=== PATIENT | female | born 1985 | race Caucasian/White ===

== ENCOUNTER 2017-04-13 11:12 | Emergency (ER) | payer BC ==
[2016-07-30 17:50] VITALS: BP 114/65
[~2017-04-13] VITALS: Ht 157.5 cm; Wt 77.1 kg
[~2017-04-13 11:12] MED LIST: ACET-704 PO; HYDR-971 PO; MAGN296S9 PO; METR500T PO
--- NOTE | 2017-04-13 11:37 | PHYS DOC ---
Past History Past Medical History: Anxiety, Migraines Past Surgical History: Appendectomy, , Tubal ligation Alcohol Use: None Drug Use: None Adult General Chief Complaint Chief Complaint: wound dehiscence [facility] HPI This is a pleasant 31-year-old female who is approximately 2 weeks postoperative oophorectomy bilaterally to a laparoscopic procedure to the abdominal wall who presents with a wound has dehisced. Her [employer] last week for a wound on her lower abdomen that she feared was infected. The wound was noninfected she was placed on bed rest but she cannot comply. 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 10 minutes prior to arrival she sneezed and the wound dehisced. She denies any pain , fevers, drainage from the wound at this time. That the wound is opened up and will not heal properly. She denies any other abdominal pain, nausea, vomiting, fevers, chills or any other symptoms. Review of Systems Review of Systems Constitutional: Denies fever or chills [] Eyes: Denies change in visual acuity, redness, or eye pain [] HENT: Denies nasal congestion or sore throat [] Respiratory: Denies cough or shortness of breath [] Cardiovascular: No additional information not addressed in HPI [] GI: Denies abdominal pain, nausea, vomiting, bloody stools or diarrhea [] : Denies dysuria or hematuria [] Musculoskeletal: Denies back pain or joint pain [] Integument: Denies rash or skin lesions [] Neurologic: Denies headache, focal weakness or sensory changes [] Endocrine: Denies polyuria or polydipsia [] Allergies Allergies Allergies Coded Allergies Type Severity Reaction Last Updated Verified No Known Drug Allergies 12/28/14 No Physical Exam Physical Exam Vital signs normal except noted tachycardia. Constitutional: Well developed, well nourished, no acute distress, non-toxic appearance. [] Abdomen: Bowel sounds normal, soft, no tenderness, no masses, no pulsatile masses. [] Skin: Warm, dry, no erythema, no rash. There is a small 1 cm open dehisced wound on the lower portion of the abdominal wall 3 inches above the pubic symphysis. There is no active bleeding drainage or signs of infection. The wound edges devastate granulation tissue the depth of the wound is only about 2- 3 mm area there is no signs of erythema Psych: Patient is anxious but appropriate. She is noted to be tachycardic but typical for her given her level of stress and oriented. EKG EKG [] Radiology/Procedures Radiology/Procedures [] Course & Med Decision Making Course & Med Decision Making Pertinent Labs and Imaging studies reviewed. (See chart for details) [] Dragon Disclaimer Dragon Disclaimer This chart was dictated in whole or in part using Voice Recognition software in a busy, high-work load, and often noisy Emergency Department environment. It may contain unintended and wholly unrecognized errors or omissions. Departure Departure: Impression: Primary Impression: Visit for wound check Disposition: HOME, SELF-CARE Condition: STABLE Referrals: AGUILAR HENRIQUEZ MD (PCP) Patient Instructions: Stitches, [place] or Skin Adhesive Strips, [id number], Wound Care, [id number] Additional Instructions: Please follow-up with her primary [employer] tomorrow or the next day to revisit the wound to ensure that is healing quickly. Please return for any signs of infection or if you've any questions or concerns. Laceration Repair Lac Repair Indication: Wound dehiscence consent was verbal Procedure: The patient was placed in the appropriate position and no anesthetic was used]. The area was then cleaned. The laceration was most using Steri- Strips and Mastisol].] The wound area was then dressed with clean gauze. Total repaired wound length: Less than 1 cm. Other Items: [OTHER ITEMS] The patient tolerated the procedure is tolerated procedure well Complications: Complications none JACQUIE BILL MD Apr 13, 2017 11:37
== END 2017-04-13 11:56 | disposition home or self-care (01) ==
LOC: ER 11:12
DX: Z48.89 Encounter for other specified surgical aftercare (principal); F41.9 Anxiety disorder, unspecified; G43.909 Migraine, unspecified, not intractable, without status migrainosus; Z90.722 Acquired absence of ovaries, bilateral; Z90.49 Acquired absence of other specified parts of digestive tract; Z98.51 Tubal ligation status
CPT/HCPCS: 99283

== ENCOUNTER 2017-06-23 20:11 | Emergency (ER) | payer BC ==
[~2017-06-23] VITALS: Ht 157.5 cm; Wt 63.5 kg
[2017-06-23 20:11] VITALS: BP 130/89
[2017-06-23] MEDS ORDERED: NAPR500T PO (20:49)
--- NOTE | 2017-06-23 20:49 | PHYS DOC ---
Past History Past Medical History: Anxiety, Migraines Past Surgical History: Appendectomy, , Tubal ligation Alcohol Use: None Drug Use: None Adult General Chief Complaint Chief Complaint: LOWEREXTREMITY INJURY HPI HPI Patient is a 31 year old female who presents with pain to her right ankle. She was running and twisted it at 1845 PM. Pain to the outer portion. Is able to ambulate. No other complaints or injuries. Review of Systems Review of Systems Musculoskeletal: only ankle pain Integument: Denies rash or skin lesions; no bruising or laceration. Allergies Allergies Allergies Coded Allergies Type Severity Reaction Last Updated Verified No Known Drug Allergies 12/28/14 No Physical Exam Physical Exam Constitutional: Well developed, well nourished, no acute distress, non-toxic appearance. Extremities: Right lower leg: no proximal fibula tenderness; no knee pain, swelling or tenderness. Right lateral malleoli tender but no swelling; no pain on palpation of 5th MT. Neurologic: Alert and oriented X 3, normal motor function, normal sensory function, no focal deficits noted. Current Patient Data Vital Signs Vital Signs Date Time Temp Pulse Resp B/P (MAP) Pulse Ox O2 Delivery O2 Flow Rate FiO2 06/23/17 20:11 98.8 118 20 97 Room Air Radiology/Procedures Radiology/Procedures Right ankle x-ray interpreted by myself at 2040 p.m. shows no acute fracture. Minimal soft tissue swelling. No dislocation. Course & Med Decision Making Course & Med Decision Making X-ray shows no fracture. We'll have her treat symptomatically with ice elevation and compression. Rx for Naprosyn. Dragon Disclaimer Dragon Disclaimer This chart was dictated in whole or in part using Voice Recognition software in a busy, high-work load, and often noisy Emergency Department environment. It may contain unintended and wholly unrecognized errors or omissions. Departure Departure: Impression: Primary Impression: Right ankle sprain Disposition: 01 HOME, SELF-CARE Condition: STABLE Referrals: TJ HENDRICKSON DO (PCP) Patient Instructions: Ankle Sprain Scripts Naproxen (NAPROSYN) 500 Mg Tablet 1 TAB PO BID, #30 TAB Prov: LITA MARES MD 06/23/17 Problem Qualifiers Primary Impression: Right ankle sprain Encounter type: initial encounter Involved ligament of ankle: unspecified ligament Qualified Codes: S93.401A - Sprain of unspecified ligament of right ankle, initial encounter LITA MARES MD Jun 23, 2017 20:49
--- NOTE | 2017-06-24 08:05 | RAD ---
Exam performed :Right ankle 3 views Clinical indication: Twisted ankle while running, complaining of severe pain Date of service: 06/23/17 .Comparison:None available Finding: AP, oblique and lateral radiographs of the ankle reveal the osseous structures to be intact and well aligned. The joint spaces are well-preserved. The articular margins are smooth. Evidence of fracture or dislocation is not identified. Impression: Radiographically normal right ankle.
== END 2017-06-23 21:03 | disposition home or self-care (01) ==
LOC: ER 20:11
DX: S93.401A Sprain of unspecified ligament of right ankle, initial encounter (principal); G43.909 Migraine, unspecified, not intractable, without status migrainosus; F41.9 Anxiety disorder, unspecified; X58.XXXA Exposure to other specified factors, initial encounter; Y93.89 Activity, other specified; Y99.8 Other external cause status; Y92.89 Other specified places as the place of occurrence of the external cause
CPT/HCPCS: 73610; 99284

== ENCOUNTER → 2017-10-28 | Outpatient (CLI) | payer BC ==
[~2017-10-28] MED LIST changes: +NAPR-683 PO
--- NOTE | 2017-10-28 14:36 | RAD ---
INDICATION: PAIN IN RIGHT KNEE COMPARISON: None. IMPRESSION: Right knee: 3 views obtained without definite acute fracture or dislocation. There may be a small joint effusion.
== END | disposition home or self-care (01) ==
LOC: DXRAD 13:29
PROVIDERS: ATTEND Family Medicine
DX: M25.561 Pain in right knee (principal)
CPT/HCPCS: 73562

== ENCOUNTER 2018-06-10 21:24 | Emergency (ER) | payer BC ==
[~2018-06-10] VITALS: Ht 160 cm; Wt 79.2 kg
[2018-06-10] MEDS: IV RINGERS SOLUTION,LACTATED 1,000 ML IV SCH ×2 (00:01→22:10)
--- NOTE | 2018-06-10 21:27 | ED.ADGEN ---
Past History Past Medical History: Anxiety, Migraines Past Surgical History: Appendectomy, , Tubal ligation Alcohol Use: None Drug Use: None Adult General Chief Complaint Chief Complaint ".. I ve been having really bad reflux.. epigastric pain.. I work at [employer].. but they could not get me in.. the gave me a GI cocktail, some mustard , and I took the prilosec... but have had no relief..." HPI HPI Patient is a 32 year old female who presents with above hx and complaints of severe reflux symptoms. Pt. has hx of prior episode of GERD/ Reflux, but it always went away with short course of Prilosec previously. Pt. states prior episodes occurred after eating spicy food. Patient denies any dark or tarry stools. Patient denies any travel or specific ill contacts. Patient has never had a EGD or colonoscopy. Patient has had previous cholecystectomy and appendectomy and total hysterectomy. Review of Systems Review of Systems Constitutional: Denies fever or chills [] Eyes: Denies change in visual acuity, redness, or eye pain [] HENT: Denies nasal congestion or sore throat [] Respiratory: Denies cough or shortness of breath [] Cardiovascular: No additional information not addressed in HPI [] GI: Plaints of epigastric abdominal pain, nausea,. Denies vomiting, bloody stools or diarrhea [] : Denies dysuria or hematuria [] Musculoskeletal: Denies back pain or joint pain [] Integument: Denies rash or skin lesions [] Neurologic: Denies headache, focal weakness or sensory changes [] Endocrine: Denies polyuria or polydipsia [] All other systems were reviewed and found to be within normal limits, except as documented in this note. Family History Family History Noncontributory Current Medications Current Medications Current Medications Medications (Trade) Dose Ordered Sig/Alison Start Time Stop Time Status Last Admin Dose Admin Famotidine (Pepcid) 20 mg 1X ONCE 06/10/18 21:45 06/10/18 21:46 DC 06/10/18 22:17 20 MG Lactated Ringer's 1,000 ml @ 1,000 mls/hr Q1H 06/10/18 21:44 06/10/18 22:43 DC 06/10/18 22:10 1,000 MLS/HR Magnesium Hydroxide (Milk Of Magnesia) 2,400 mg 1X ONCE 06/10/18 21:45 06/10/18 21:46 DC 06/10/18 22:03 2,400 MG Ondansetron HCl (Zofran Odt) 8 mg 1X ONCE 06/10/18 22:00 06/10/18 22:21 DC 06/10/18 22:03 8 MG Oxycodone/ Acetaminophen (Percocet 5/325) 2 tab 1X ONCE 06/10/18 22:30 06/10/18 22:31 DC 06/10/18 22:21 2 TAB Sucralfate (Carafate) 1 gm 1X ONCE 06/10/18 22:00 06/10/18 22:21 DC 06/10/18 22:19 1 GM Allergies Allergies Allergies Coded Allergies Type Severity Reaction Last Updated Verified No Known Drug Allergies 12/28/14 No Physical Exam Physical Exam Constitutional: Well developed, well nourished, in acute distress, non-toxic appearance. [] HENT: Normocephalic, atraumatic, bilateral external ears normal, oropharynx moist, no oral exudates, nose normal. Small lesion on tip of nose. Eyes: PERRLA, EOMI, conjunctiva normal, no discharge. [] Neck: Normal range of motion, no tenderness, supple, no stridor. [] Cardiovascular:Heart rate regular rhythm, no murmur [] Lungs & Thorax: Bilateral breath sounds clear to auscultation [] Abdomen: Bowel sounds normal, soft, no tenderness, no masses, no pulsatile masses. [] Old surgical scars. Declines rectal at this time. ( No hx of dark or tarry stools. ) Skin: Warm, dry, no erythema, no rash. [] Back: No tenderness, no CVA tenderness. [] Extremities: No tenderness, no cyanosis, no clubbing, ROM intact, no edema. [] No cording appreciated in legs. Neurologic: Alert and oriented X 3, normal motor function, normal sensory function, no focal deficits noted. [] Psychologic: Affect anxious, judgement normal, mood normal. [] Current Patient Data Vital Signs Vital Signs Date Time Temp Pulse Resp B/P (MAP) Pulse Ox O2 Delivery O2 Flow Rate FiO2 06/10/18 22:21 16 99 Room Air 06/10/18 21:27 98.3 96 Lab Results Laboratory Tests Test 06/10/18 21:33 06/10/18 22:08 Urine Collection Type Unknown Urine Color Yellow Urine Clarity Clear Urine pH 6.5 Urine Specific [place] 1.020 Urine Protein Neg (NEG-TRACE) Urine Glucose (UA) Neg mg/dL (NEG) Urine Ketones (Stick) Neg mg/dL (NEG) Urine Blood Neg (NEG) Urine Nitrite Neg (NEG) Urine Bilirubin Neg (NEG) Urine Urobilinogen Dipstick 0.2 mg/dL (0.2 mg/dL) Urine Leukocyte Esterase Neg (NEG) White Blood Count 9.6 x10^3/uL (4.0-11.0) Red Blood Count 4.20 x10^6/uL (3.50-5.40) Hemoglobin 12.2 g/dL (12.0-15.5) Hematocrit 36.1 % (36.0-47.0) Mean Corpuscular Volume 86 fL (79-100) Mean Corpuscular Hemoglobin 29 pg (25-35) Mean Corpuscular Hemoglobin Concent 34 g/dL (31-37) Red Cell Distribution Width 13.9 % (11.5-14.5) Platelet Count 232 x10^3/uL (140-400) Neutrophils (%) (Auto) 59 % (31-73) Lymphocytes (%) (Auto) 27 % (24-48) Monocytes (%) (Auto) 8 % (0-9) Eosinophils (%) (Auto) 6 % (0-3) H Basophils (%) (Auto) 0 % (0-3) Neutrophils # (Auto) 5.6 x10^3uL (1.8-7.7) Lymphocytes # (Auto) 2.6 x10^3/uL (1.0-4.8) Monocytes # (Auto) 0.7 x10^3/uL (0.0-1.1) Eosinophils # (Auto) 0.6 x10^3/uL (0.0-0.7) Basophils # (Auto) 0.0 x10^3/uL (0.0-0.2) Sodium Level 143 mmol/L (136-145) Potassium Level 3.6 mmol/L (3.5-5.1) Chloride Level 106 mmol/L (98-107) Carbon Dioxide Level 28 mmol/L (21-32) Anion Gap 9 (6-14) Blood Urea Nitrogen 7 mg/dL (7-20) Creatinine 0.6 mg/dL (0.6-1.0) Estimated GFR (Cockcroft-Gault) 117.4 Glucose Level 96 mg/dL (70-99) Calcium Level 8.9 mg/dL (8.5-10.1) Magnesium Level 2.0 mg/dL (1.8-2.4) Total Bilirubin 0.2 mg/dL (0.2-1.0) Direct Bilirubin 0.1 mg/dL (0.0-0.2) Aspartate Amino Transferase (AST) 17 U/L (15-37) Alanine Aminotransferase (ALT) 27 U/L (14-59) Alkaline Phosphatase 116 U/L (46-116) Creatine Kinase 93 U/L (26-192) Creatine Kinase MB (Mass) 0.8 ng/mL (0.0-3.6) Creatine Kinase MB Relative Index 0.9 % (0-4) Troponin I Quantitative < 0.017 ng/mL (0-0.055) Total Protein 7.1 g/dL (6.4-8.2) Albumin 3.5 g/dL (3.4-5.0) Lipase 170 U/L (73-393) EKG EKG My interpretation EKG shows a sinus rhythm at 86 bpm. No acute morphology appreciated.[] Course & Med Decision Making Course & Med Decision Making Pertinent Labs and Imaging studies reviewed. (See chart for details) Stay on clear fluid diet x 48 hrs. No solids or milk products. Allow bowel rest. Pepcid 20 mg twice a day. Take Tylenol for pain. Follow up with primary. Consider EGD to eval. upper GI and Esophageal structures for reflux and ulcers. Return if any concerns. [] Final Impression Final Impression 1. Epigastric pain[] Dragon Disclaimer Dragon Disclaimer This electronic medical record was generated, in whole or in part, using a voice recognition dictation system. NINO COOK MD Jun 10, 2018 21:27
[2018-06-10] MEDS ORDERED: MAGNESIUM HYDROXIDE 2,400 MG/30 ML ORAL.SUSP. PO ONE (21:45)
[2018-06-10] MEDS ORDERED: FAMOTIDINE 20 MG TABLET PO ONE (21:45)
[2018-06-10] MEDS ORDERED: ONDANSETRON ODT 4 MG TAB.RAPDIS PO ONE (22:00)
[2018-06-10] MEDS ORDERED: SUCRALFATE 1 GM TABLET. PO ONE (22:00)
[2018-06-10 22:18] LABS: BILIRUBIN,URINE NEG (NEG); CLARITY,URINE CLEAR; COLOR,URINE YELLOW; GLUCOSE,URINE NEG (NEG); NITRITE,URINE NEG (NEG); UROBILINOGEN,URINE 0.2 mg/dL (0.2 mg/dL)
[2018-06-10] MEDS ORDERED: oxyCODONE/APAP 5/325 1 TAB TABLET PO ONE (22:30)
[2018-06-10 22:40] LABS: BASO % 0 % (0-3); EOS # 0.6 x10^3/uL (0.0-0.7); EOS % 6 % (0-3); HEMATOCRIT 36.1 % (36.0-47.0); HEMOGLOBIN 12.2 g/dL (12.0-15.5); LYMPH # 2.6 x10^3/uL (1.0-4.8); LYMPH % 27 % (24-48); MEAN CORPUSCULAR HEMOGLOBIN 29 pg (25-35); MEAN CORPUSCULAR HGB CONC 34 g/dL (31-37); MEAN CORPUSCULAR VOLUME 86 fL (79-100); MONO # 0.7 x10^3/uL (0.0-1.1); MONO % 8 % (0-9); NEUT # 5.6 x10^3uL (1.8-7.7); NEUT % 59 % (31-73); PLATELET COUNT 232 x10^3/uL (140-400); RED CELL DISTRIBUTION WIDTH 13.9 % (11.5-14.5); WHITE BLOOD COUNT 9.6 x10^3/uL (4.0-11.0)
[2018-06-10 23:06] LABS: ALBUMIN 3.5 g/dL (3.4-5.0); CALCIUM 8.9 mg/dL (8.5-10.1); CREATININE 0.6 mg/dL (0.6-1.0); GFR 117.4; POTASSIUM 3.6 mmol/L (3.5-5.1); TOTAL BILIRUBIN 0.2 mg/dL (0.2-1.0); TOTAL PROTEIN 7.1 g/dL (6.4-8.2)
[2018-06-10] MEDS ORDERED: FAMO-63 PO (23:06)
[2018-06-10 23:07] LABS: DIRECT BILIRUBIN 0.1 mg/dL (0.0-0.2)
[2018-06-10 23:25] VITALS: BP 108/64
--- NOTE | 2018-06-11 05:04 | EKG ---
[address] [address] Test Date: 2018-06-10 Test Time: 21:58:42 Pat Name: HAMMAD VILLALOBOS Department: Room: Gender: F .Net Architect: : [id number] Requested By: NINO COOK Order Number: [id number] Reading MD: Biju Heller MD Measurements Intervals [place] Rate: 86 P: 49 TN: 162 QRS: 16 QRSD: 84 T: 24 QT: 346 QTc: 417 Interpretive Statements SINUS RHYTHM Electronically Signed On 06-11-2018 15:30:22 CDT by Biju Heller MD
== END 2018-06-10 23:35 | disposition home or self-care (01) ==
LOC: ER 21:24
DX: R10.13 Epigastric pain (principal); K21.9 Gastro-esophageal reflux disease without esophagitis; G43.909 Migraine, unspecified, not intractable, without status migrainosus; Z90.49 Acquired absence of other specified parts of digestive tract; Z98.890 Other specified postprocedural states; Z98.51 Tubal ligation status
CPT/HCPCS: 36415; 80048; 80076; 81003; 82553; 83690; 83735; 84484; 85025; 93005; 99285; J7120; Q0162

== ENCOUNTER 2019-09-09 16:40 | Emergency (ER) | payer BC ==
[~2019-09-09] VITALS: Ht 160 cm; Wt 78.0 kg
[~2019-09-09 16:40] MED LIST changes: +FAMO-63 PO; +HYDR-3165 PO; -HYDR-971 PO
--- NOTE | 2019-09-09 17:48 | ED.ADGEN ---
Past History Past Medical History: Other Past Surgical History: Appendectomy, , Hysterectomy Alcohol Use: None Drug Use: None Adult General Chief Complaint Chief Complaint ".. I had this little dark spot on my Lt breast.. about three days ago.. I squeezed it.. got a little pus out .. but today it more red and sore..." HPI HPI Patient is a 33 year old female who presents with above hx. and complaints left breast cellulitis and abscess. Patient has an area approximately 3 x 3 cm erythema/cellulitis at 3:00 on left breast. Does have a central area of obvious drained abscess. No current fluctuation. No striations. No adenopathy at axillary. No discharge from nipple. Patient denies any history immuno suppression. Recent travel. No specific ill contacts. Review of Systems Review of Systems Constitutional: Denies fever or chills [] Eyes: Denies change in visual acuity, redness, or eye pain [] HENT: Denies nasal congestion or sore throat [] Respiratory: Denies cough or shortness of breath [] Cardiovascular: No additional information not addressed in HPI [] GI: Denies abdominal pain, nausea, vomiting, bloody stools or diarrhea [] : Denies dysuria or hematuria [] Musculoskeletal: Denies back pain or joint pain [] Integument: Denies rash or skin lesions . Except complaints of cellulitis on left breast as per history of present illness Neurologic: Denies headache, focal weakness or sensory changes [] Endocrine: Denies polyuria or polydipsia [] All other systems were reviewed and found to be within normal limits, except as documented in this note. Family History Family History Noncontributory Current Medications Current Medications Current Medications Medications (Trade) Dose Ordered Sig/Alison Start Time Stop Time Status Last Admin Dose Admin Diphtheria/ Tetanus/Acell Pertussis (Boostrix) 0.5 ml ONCE ONCE 09/09/19 18:45 09/09/19 18:46 DC 09/09/19 18:39 0.5 ML Trimethoprim/ Sulfamethoxazole (Bactrim Ds) 1 tab 1X ONCE 09/09/19 18:45 09/09/19 18:46 DC 09/09/19 18:38 1 TAB Allergies Allergies Allergies Coded Allergies Type Severity Reaction Last Updated Verified No Known Drug Allergies 12/28/14 No Physical Exam Physical Exam Constitutional: Well developed, well nourished, moderately acute distress, non- toxic appearance. [] HENT: Normocephalic, atraumatic, bilateral external ears normal, oropharynx moist, no oral exudates, nose normal. [] Eyes: PERRLA, EOMI, conjunctiva normal, no discharge. [] Neck: Normal range of motion, no tenderness, supple, no stridor. [] Cardiovascular:Heart rate regular rhythm, no murmur [] Lungs & Thorax: Bilateral breath sounds clear to auscultation . Pt. has area of[]left breast area of cellulitis and abscess as per HPI. Abdomen: Bowel sounds normal, soft, no tenderness, no masses, no pulsatile masses. [] Old surgery scars. Skin: Warm, dry, no erythema, no rash. [] Back: No tenderness, no CVA tenderness. [] Extremities: No tenderness, no cyanosis, no clubbing, ROM intact, no edema. [] Neurologic: Alert and oriented X 3, normal motor function, normal sensory function, no focal deficits noted. [] Psychologic: Affect anxious, judgement normal, mood normal. [] Current Patient Data Vital Signs Vital Signs Date Time Temp Pulse Resp B/P (MAP) Pulse Ox O2 Delivery O2 Flow Rate FiO2 09/09/19 17:54 98.7 94 16 100 Room Air Lab Results Laboratory Tests Test 09/09/19 18:18 Urine Collection Type Unknown Urine Color Yellow Urine Clarity Clear Urine pH 7.0 Urine Specific [place] 1.015 Urine Protein Neg (NEG-TRACE) Urine Glucose (UA) Neg mg/dL (NEG) Urine Ketones (Stick) Neg mg/dL (NEG) Urine Blood Trace (NEG) Urine Nitrite Neg (NEG) Urine Bilirubin Neg (NEG) Urine Urobilinogen Dipstick 0.2 mg/dL (0.2 mg/dL) Urine Leukocyte Esterase Neg (NEG) Urine RBC Rare /HPF (0-2) Urine WBC Occ /HPF (0-4) Urine Squamous Epithelial Cells Occ /LPF Urine Bacteria 0 /HPF (0-FEW) Urine Mucus Slight /LPF Urine Opiates Screen Neg (NEG) Urine Methadone Screen Neg (NEG) Urine Barbiturates Neg (NEG) Urine Phencyclidine Screen Neg (NEG) Urine Amphetamine/Methamphetamine Neg (NEG) Urine Benzodiazepines Screen Neg (NEG) Urine Cocaine Screen Neg (NEG) Urine Cannabinoids Screen Neg (NEG) Urine Ethyl Alcohol Neg (NEG) EKG EKG [] Radiology/Procedures Radiology/Procedures [] Course & Med Decision Making Course & Med Decision Making Pertinent Labs and Imaging studies reviewed. (See chart for details) Patient use warm moist compresses with salt water or Epsom salts. At least 4 times a day. Massage area with Polysporin afterwards. Patient take Bactrim DS twice a day. Patient follow-up primary care. Informed patient that sometimes atypical cancers can present as an infection so it must be followed up closely. Patient take Tylenol or Profen pain. Patient return if any concerns. [] Final Impression Final Impression 1. Cellulitis / Abscess[] Dragon Disclaimer Dragon Disclaimer This electronic medical record was generated, in whole or in part, using a voice recognition dictation system. Dragon Disclaimer This chart was dictated in whole or in part using Voice Recognition software in a busy, high-work load, and often noisy Emergency Department environment. It may contain unintended and wholly unrecognized errors or omissions. NINO COOK MD Sep 09, 2019 17:48
[2019-09-09 17:54] VITALS: BP 131/90
[2019-09-09] MEDS ORDERED: SULF1TAB24 PO (18:34)
[2019-09-09] MEDS ORDERED: SMZ/TMP 800/160MG TABLET. PO ONE (18:45)
[2019-09-09] MEDS ORDERED: DIPHTH,PERTUSS(ACELL),TET TOX 0.5 ML DISP.SYRIN. VAX IM ONE (18:45)
[2019-09-09 18:57] LABS: BARBITURATES NEG (NEG); BENZODIAZEPINES NEG (NEG); CANNABINOIDS NEG (NEG); COCAINE NEG (NEG); METHADONE NEG (NEG); OPIATES NEG (NEG); PHENCYCLIDINE NEG (NEG)
[2019-09-09 19:01] LABS: BACTERIA,URINE 0 /HPF (0-FEW); BILIRUBIN,URINE NEG (NEG); CLARITY,URINE CLEAR; COLOR,URINE YELLOW; GLUCOSE,URINE NEG (NEG); NITRITE,URINE NEG (NEG); RBC,URINE RARE /HPF (0-2); SQUAMOUS EPITHELIAL CELL,UR OCC /LPF; UROBILINOGEN,URINE 0.2 mg/dL (0.2 mg/dL); WBC,URINE OCC /HPF (0-4)
[2019-09-09 19:05] LABS: AMPHETAMINE/METHAMPHETAMINE NEG (NEG)
== END 2019-09-09 18:59 | disposition home or self-care (01) ==
LOC: ER 16:40
DX: N61.1 Abscess of the breast and nipple (principal)
CPT/HCPCS: 36415; 80307; 81001; 90471; 90715; 99284

== ENCOUNTER 2019-10-07 21:09 | Emergency (ER) | payer BC ==
[~2019-10-07] VITALS: Ht 157.5 cm; Wt 78.9 kg
[~2019-10-07 21:09] MED LIST changes: +SULF1TAB24 PO
[2019-10-07] MEDS ORDERED: IV NORMAL SALINE 1,000ML 1,000 ML IV ONE (21:30)
[2019-10-07] MEDS ORDERED: ONDANSETRON PF 4 MG/2 ML VIAL. IVP ONE (21:30)
[2019-10-07] MEDS ORDERED: KETOROLAC 15 MG/ML VIAL. IVP ONE (21:45)
[2019-10-07] MEDS ORDERED: FAMOTIDINE 20 MG/2 ML VIAL IVP ONE (21:45)
[2019-10-07 22:01] LABS: BASO # 0.1 x10^3/uL (0.0-0.2); BASO % 0 % (0-3); EOS # 0.2 x10^3/uL (0.0-0.7); EOS % 1 % (0-3); HEMATOCRIT 44.7 % (36.0-47.0); LYMPH # 0.6 x10^3/uL (1.0-4.8); LYMPH % 4 % (24-48); MEAN CORPUSCULAR HEMOGLOBIN 30 pg (25-35); MEAN CORPUSCULAR HGB CONC 34 g/dL (31-37); MEAN CORPUSCULAR VOLUME 88 fL (79-100); MONO # 0.5 x10^3/uL (0.0-1.1); MONO % 3 % (0-9); NEUT # 13.4 x10^3uL (1.8-7.7); NEUT % 91 % (31-73); PLATELET COUNT 240 x10^3/uL (140-400); RED BLOOD COUNT 5.06 x10^6/uL (3.50-5.40); RED CELL DISTRIBUTION WIDTH 13.5 % (11.5-14.5); WHITE BLOOD COUNT 14.8 x10^3/uL (4.0-11.0)
[2019-10-07 22:13] LABS: ALBUMIN 4.4 g/dL (3.4-5.0); CALCIUM 9.3 mg/dL (8.5-10.1); CREATININE 0.8 mg/dL (0.6-1.0); GFR 83.7; MAGNESIUM 1.8 mg/dL (1.8-2.4); TOTAL BILIRUBIN 0.6 mg/dL (0.2-1.0); TOTAL PROTEIN 8.9 g/dL (6.4-8.2)
[2019-10-07 22:51] LABS: BACTERIA,URINE 0 /HPF (0-FEW); BILIRUBIN,URINE NEG (NEG); CLARITY,URINE HAZY; COLOR,URINE YELLOW; GLUCOSE,URINE NEG (NEG); NITRITE,URINE NEG (NEG); RBC,URINE 0 /HPF (0-2); SQUAMOUS EPITHELIAL CELL,UR OCC /LPF; UROBILINOGEN,URINE 0.2 mg/dL (0.2 mg/dL)
[2019-10-07 22:52] LABS: HYALINE CASTS, URINE OCC /HPF
[2019-10-07] MEDS ORDERED: METOCLOPRAMIDE HCL 10 MG/2 ML VIAL. IVP ONE (23:00)
[2019-10-07] MEDS ORDERED: diphenhydrAMINE 50 MG/ML VIAL IVP ONE (23:00)
[2019-10-07] MEDS ORDERED: ONDA4TAB12 PO (23:06)
[2019-10-07] MEDS ORDERED: FAMO-63 PO (23:06)
--- NOTE | 2019-10-07 23:07 | PHYS DOC ---
Past History Past Medical History: No Pertinent History Past Surgical History: Appendectomy, , Hysterectomy Smoking: Cigarettes Alcohol Use: None Drug Use: None Adult General Chief Complaint Chief Complaint: FLU SYMPTOM HPI HPI 33 year old female presents with history of nausea and vomiting x 1 day. Reports she is currently unable to keep anything down. Reports positive sick contacts with daughter. Denies trauma. Reports history of recent diagnosis of sinusitis for which patient is currently being treated with antibiotics. Denies diarrhea. Review of Systems Review of Systems Constitutional: Denies fever; reports malaise Eyes: Denies redness or eye pain HENT: Denies nasal congestion or sore throat Respiratory: Denies cough or shortness of breath Cardiovascular: Denies chest pain or palpitations GI: Reports epigastric abdominal pain, nausea, and vomiting : Denies dysuria or hematuria Musculoskeletal: Denies back pain or joint pain Integument: Denies rash or skin lesions Neurologic: Denies headache, focal weakness or sensory changes Complete systems were reviewed and found to be within normal limits, except as documented in this note. Current Medications Current Medications Current Medications Medications (Trade) Dose Ordered Sig/Alison Start Time Stop Time Status Last Admin Dose Admin Famotidine (Pepcid Vial) 20 mg 1X ONCE 10/07/19 21:45 10/07/19 21:46 DC 10/07/19 21:52 20 MG Ketorolac Tromethamine (Toradol 15mg Vial) 15 mg 1X ONCE 10/07/19 21:45 10/07/19 21:46 DC 10/07/19 21:52 15 MG Ondansetron HCl (Zofran) 4 mg 1X ONCE 10/07/19 21:30 10/07/19 21:46 DC 10/07/19 21:52 4 MG Sodium Chloride 1,000 ml @ 1,000 mls/hr 1X ONCE 10/07/19 21:30 10/07/19 22:29 DC 10/07/19 21:53 1,000 MLS/HR Allergies Allergies Allergies Coded Allergies Type Severity Reaction Last Updated Verified No Known Drug Allergies 12/28/14 No Physical Exam Physical Exam Constitutional: Well developed, well nourished, no acute distress, non-toxic appearance HENT: Normocephalic, atraumatic, oropharynx tacky Eyes: Conjunctiva normal, no discharge Neck: Normal range of motion, no tenderness, supple Cardiovascular: Heart rate normal, regular rhythm Lungs & Thorax: Bilateral breath sounds clear to auscultation, no wheezing Abdomen: Soft, no tenderness, no guarding/rebound tenderness/distention Skin: Warm, dry, no erythema, no rash Extremities: No tenderness, ROM intact, no edema Neurologic: Alert and oriented X 3, no focal deficits noted Psychologic: Affect normal, judgement normal Current Patient Data Vital Signs Vital Signs Date Time Temp Pulse Resp B/P (MAP) Pulse Ox O2 Delivery O2 Flow Rate FiO2 10/07/19 21:09 98.1 122 18 99 Room Air Lab Results Laboratory Tests Test 10/07/19 21:36 10/07/19 22:27 White Blood Count 14.8 x10^3/uL (4.0-11.0) H Red Blood Count 5.06 x10^6/uL (3.50-5.40) Hemoglobin 15.0 g/dL (12.0-15.5) Hematocrit 44.7 % (36.0-47.0) Mean Corpuscular Volume 88 fL (79-100) Mean Corpuscular Hemoglobin 30 pg (25-35) Mean Corpuscular Hemoglobin Concent 34 g/dL (31-37) Red Cell Distribution Width 13.5 % (11.5-14.5) Platelet Count 240 x10^3/uL (140-400) Neutrophils (%) (Auto) 91 % (31-73) H Lymphocytes (%) (Auto) 4 % (24-48) L Monocytes (%) (Auto) 3 % (0-9) Eosinophils (%) (Auto) 1 % (0-3) Basophils (%) (Auto) 0 % (0-3) Neutrophils # (Auto) 13.4 x10^3uL (1.8-7.7) H Lymphocytes # (Auto) 0.6 x10^3/uL (1.0-4.8) L Monocytes # (Auto) 0.5 x10^3/uL (0.0-1.1) Eosinophils # (Auto) 0.2 x10^3/uL (0.0-0.7) Basophils # (Auto) 0.1 x10^3/uL (0.0-0.2) Sodium Level 139 mmol/L (136-145) Potassium Level 4.0 mmol/L (3.5-5.1) Chloride Level 100 mmol/L (98-107) Carbon Dioxide Level 25 mmol/L (21-32) Anion Gap 14 (6-14) Blood Urea Nitrogen 13 mg/dL (7-20) Creatinine 0.8 mg/dL (0.6-1.0) Estimated GFR (Cockcroft-Gault) 83.7 BUN/Creatinine Ratio 16 (6-20) Glucose Level 104 mg/dL (70-99) H Calcium Level 9.3 mg/dL (8.5-10.1) Magnesium Level 1.8 mg/dL (1.8-2.4) Total Bilirubin 0.6 mg/dL (0.2-1.0) Aspartate Amino Transferase (AST) 22 U/L (15-37) Alanine Aminotransferase (ALT) 35 U/L (14-59) Alkaline Phosphatase 115 U/L (46-116) Total Protein 8.9 g/dL (6.4-8.2) H Albumin 4.4 g/dL (3.4-5.0) Albumin/Globulin Ratio 1.0 (1.0-1.7) Lipase 91 U/L (73-393) Urine Collection Type Unknown Urine Color Yellow Urine Clarity Hazy Urine pH 5.5 Urine Specific Henderson >=1.030 Urine Protein 100 mg/dl (NEG-TRACE) Urine Glucose (UA) Neg mg/dL (NEG) Urine Ketones (Stick) Trace mg/dL (NEG) Urine Blood Neg (NEG) Urine Nitrite Neg (NEG) Urine Bilirubin Neg (NEG) Urine Urobilinogen Dipstick 0.2 mg/dL (0.2 mg/dL) Urine Leukocyte Esterase Neg (NEG) Urine RBC 0 /HPF (0-2) Urine WBC 1-4 /HPF (0-4) Urine Squamous Epithelial Cells Occ /LPF Urine Bacteria 0 /HPF (0-FEW) Urine Hyaline Casts Occ /HPF Urine Mucus Mod /LPF EKG EKG [] Radiology/Procedures Radiology/Procedures [] Course & Med Decision Making Course & Med Decision Making Pertinent Lab studies reviewed. (See chart for details) Patient presents with history of present illness and physical exam concerning for viral gastroenteritis. Abdomen non-peritoneal. Afebrile. IV fluid hydration provided. Symptomatic treatment given. Labs obtained and posted to chart. Patient stable for discharge with outpatient follow-up with PCP. Discussed findings and plan with patient and family, who acknowledge understanding and agreement. Dragon Disclaimer Dragon Disclaimer This electronic medical record was generated, in whole or in part, using a voice recognition dictation system. Departure Departure: Impression: Primary Impression: Nausea vomiting and diarrhea Disposition: 01 HOME, SELF-CARE Condition: STABLE Referrals: PCP,NO (PCP) Patient Instructions: Clear Liquid Diet, Jlux-[id number], Diarrhea, Ylla-[id number], Diet for Diarrhea, Adult, Nausea and Vomiting, [id number] Scripts Famotidine (PEPCID) 20 Mg Tablet 1 TAB PO BID for gastritis, #30 TAB Prov: CASTILLO SUGGS DO 10/07/19 Ondansetron (ONDANSETRON ODT) 4 Mg Tab.rapdis 1 TAB PO PRN Q6-8HRS PRN for NAUSEA, #16 TAB Prov: CASTILLO SUGGS DO 10/07/19 CASTILLO SUGGS DO Oct 07, 2019 23:07
[2019-10-07 23:20] VITALS: BP 114/67
== END 2019-10-07 23:36 | disposition home or self-care (01) ==
LOC: ER 21:09
DX: R11.2 Nausea with vomiting, unspecified (principal); R19.7 Diarrhea, unspecified; R10.13 Epigastric pain; F17.210 Nicotine dependence, cigarettes, uncomplicated; Z90.89 Acquired absence of other organs; Z98.890 Other specified postprocedural states; Z90.710 Acquired absence of both cervix and uterus
CPT/HCPCS: 36415; 80053; 81001; 83690; 83735; 85025; 96361; 96374; 96375; 99285; J1200; J1885; J2405; J2765; J3490; J7030

== ENCOUNTER 2020-09-23 09:37 | Emergency (ER) | payer BC, OTHER ==
[~2020-09-23] VITALS: Ht 157.5 cm; Wt 79.2 kg
[2020-09-23 09:37] VITALS: BP 126/85
[~2020-09-23 09:37] MED LIST changes: +MAGN296S68 PO; -MAGN296S9 PO; +ONDA4TAB12 PO
--- NOTE | 2020-09-23 09:57 | PHYS DOC ---
Past History Past Medical History: Anxiety Additional Past Medical Histor: ADD Past Surgical History: Appendectomy, , Hysterectomy Smoking: Cigarettes Alcohol Use: None Drug Use: None Adult General Chief Complaint Chief Complaint: WRIST PAIN HPI HPI Patient is a 34-year-old female who presents with right wrist pain. Reports initial injury was 2 days ago. 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 She is unsure exact mechanism but reported focal right wrist pain ever since. She has been working since injury onset. She has full motor and sensory function but admits ongoing pain with direct palpation of wrist, no exacerbation with wrist pronation and/or supination. She went to PCP office today and had x2 radiographs performed with suspect distal radial head dislocation and so, she was referred to our ER for further management. Review of Systems Review of Systems Fourteen body systems of review of systems have been reviewed. See HPI for pertinent positives and negative responses, other garcia all other systems are negative, non-pertinent or non-contributory Allergies Allergies Allergies Coded Allergies Type Severity Reaction Last Updated Verified No Known Drug Allergies 12/28/14 No Physical Exam Physical Exam Constitutional: Well developed, well nourished, no acute distress, non-toxic appearance. [] HENT: Normocephalic, atraumatic, bilateral external ears normal, oropharynx moist, no oral exudates, nose normal. [] Eyes: PERRLA, EOMI, conjunctiva normal, no discharge. [] Neck: Normal range of motion, no tenderness, supple, no stridor. [] Cardiovascular:Heart rate regular rhythm, no murmur [] Lungs & Thorax: Bilateral breath sounds clear to auscultation [] Abdomen: Bowel sounds normal, soft, no tenderness, no masses, no pulsatile masses. [] Skin: Warm, dry, no erythema, no rash. [] Back: No tenderness, no CVA tenderness. [] Extremities: No cyanosis, no clubbing, ROM intact, no edema. TTP over anatomical snuffbox on right, reports pain at base of right middle metacarpal, pain at distal tip of radius[] Neurologic: Alert and oriented X 3, normal motor function, normal sensory fu nction, no focal deficits noted. Medial/ulnar/radial nerves intact [] Psychologic: Affect normal, judgement normal, anxious normal. [] Current Patient Data Vital Signs Vital Signs Date Time Temp Pulse Resp B/P (MAP) Pulse Ox O2 Delivery O2 Flow Rate FiO2 09/23/20 09:37 97.9 98 18 126/85 (99) 99 Room Air EKG EKG [] Radiology/Procedures Radiology/Procedures PROCEDURE: WRIST 3V RIGHT Right wrist 3 views, right forearm 2 views, right hand 3 views. HISTORY: Anatomic snuffbox tenderness, right distal radius dislocation Right hand 3 views were taken of the right hand. There is not evidence of an acute fracture or osseous abnormality Right wrist 3 views were taken of the right wrist. There is not evidence of an acute fracture or osseous abnormality. There is no dislocation at the wrist. Right forearm 2 views were taken of the right forearm. There is not evidence of an acute fracture or osseous abnormality. IMPRESSION: 1. Negative right forearm. 2. No fracture or acute osseous abnormality right wrist. 3. No fracture or acute osseous abnormality right hand. Electronically signed by: Adrien Chavez MD (09/23/2020 10:24 AM) [facility] Heart Score Risk Factors: Risk Factors: DM, Current or recent (<one month) smoker, HTN, HLP, family history of CAD, obesity. Risk Scores: Risk Factors: DM, Current or recent (<one month) smoker, HTN, HLP, family history of CAD, obesity. Course & Med Decision Making Course & Med Decision Making Pertinent Labs and Imaging studies reviewed. (See chart for details) Discussed most likely diagnosis of right wrist contusion. Continued supportive care, outpatient follow-up and consideration for ortho referral advised Strict return precautions discussed with good understanding by patient, all questions and concerns address prior to ED departure in stable condition Dragon Disclaimer Dragon Disclaimer This electronic medical record was generated, in whole or in part, using a voice recognition dictation system. Departure Departure: Impression: Primary Impression: Contusion of right wrist Disposition: 01 DC HOME SELF CARE/HOMELESS Condition: STABLE Referrals: TASHA DING (PCP) Patient Instructions: Contusion, RICE - Routine Care for Injuries Additional Instructions: As discussed prior to ER departure, please call your primary care physician first thing after ER departure to schedule outpatient follow-up in upcoming 2 to 10 days after ER visit today You would benefit from continued supportive care, NSAIDs and/or Tylenol for pain control and reevaluation by primary care physician in outpatient setting. I did disclose there might be indication for orthopedic/sports med referral, please discuss this with your PCP If any concerning signs or symptoms present prior to outpatient follow-up please do not hesitate to come back for repeat examination It was a pleasure to take care of you and I wish you a speedy recovery JARAD ALVARES DO Sep 23, 2020 09:57
[2020-09-23] MEDS ORDERED: ACETAMINOPHEN 325 MG TABLET PO ONE (10:00)
--- NOTE | 2020-09-23 10:27 | RAD ---
Right wrist 3 views, right forearm 2 views, right hand 3 views. HISTORY: Anatomic snuffbox tenderness, right distal radius dislocation Right hand 3 views were taken of the right hand. There is not evidence of an acute fracture or osseous abnormality Right wrist 3 views were taken of the right wrist. There is not evidence of an acute fracture or osseous abnormality. There is no dislocation at the wrist. Right forearm 2 views were taken of the right forearm. There is not evidence of an acute fracture or osseous abnormality. IMPRESSION: 1. Negative right forearm. 2. No fracture or acute osseous abnormality right wrist. 3. No fracture or acute osseous abnormality right hand. Electronically signed by: Adrien Chavez MD (09/23/2020 10:24 AM) [facility]
== END 2020-09-23 11:00 | disposition home or self-care (01) ==
LOC: ER 09:37
DX: S60.211A Contusion of right wrist, initial encounter (principal); F41.9 Anxiety disorder, unspecified; F17.210 Nicotine dependence, cigarettes, uncomplicated; X50.9XXA Other and unspecified overexertion or strenuous movements or postures, initial encounter; Y93.89 Activity, other specified; Y92.89 Other specified places as the place of occurrence of the external cause; Y99.8 Other external cause status
CPT/HCPCS: 29125; 73090; 73110; 73130; 99284

== ENCOUNTER 2020-11-08 21:09 | Emergency (ER) | payer OTHER ==
[~2020-11-08] VITALS: Ht 157.5 cm; Wt 79.2 kg
--- NOTE | 2020-11-08 21:47 | PHYS DOC ---
Past History Past Medical History: Anxiety Additional Past Medical Histor: ADD Past Surgical History: Appendectomy, , Hysterectomy Smoking: Cigarettes Alcohol Use: None Drug Use: None Adult General Chief Complaint Chief Complaint: SORE THROAT HPI HPI Patient is a 34-year-old female who presents with 3 days of sore throat. States it started Friday on the left side, 6 out of 10, sharp in nature. States she has had a mild intermittent headache but does not have 1 at the moment. States she had taken some Tylenol at home. Denies any recent travel, trauma, recent illnesses, fevers, cough, chest pain, shortness of breath, abdominal pain, nausea, vomiting, diarrhea. States that she did have Covid in August and quarantined appropriately. States she has been doing well since then. States she has had strep throat many times when she was younger but had not had it for a while. States that her body else at home is asymptomatic. Review of Systems Review of Systems Review of systems otherwise unremarkable outside of HPI Current Medications Current Medications Current Medications Medications (Trade) Dose Ordered Sig/Alison Start Time Stop Time Status Last Admin Dose Admin Dexamethasone Sodium Phosphate (Decadron) 10 mg 1X ONCE 11/08/20 21:45 11/08/20 21:46 UNV Throat Lozenges (Cepacol Sore Throat Lozenge) 1 ron PRN Q2HR PRN 11/08/20 21:45 UNV Allergies Allergies Allergies Coded Allergies Type Severity Reaction Last Updated Verified No Known Drug Allergies 12/28/14 No Physical Exam Physical Exam Constitutional: Well developed, well nourished, no acute distress, non-toxic appearance. [] HENT: Normocephalic, atraumatic, bilateral external ears normal, erythematous oropharynx with some scattered left-sided exudate Eyes: PERRLA, EOMI, conjunctiva normal, no discharge. [] Neck: Normal range of motion, supple, no stridor, left-sided cervical lymphadenopathy Cardiovascular:Heart rate regular rhythm, no murmur [] Lungs & Thorax: Bilateral breath sounds clear to auscultation [] Abdomen: soft, no tenderness, no masses, Skin: Warm, dry, no erythema, no rash. [] Extremities: No tenderness, no cyanosis, no clubbing, ROM intact, no edema. [] Neurologic: Alert and oriented X 3, normal motor function, normal sensory function, no focal deficits noted. [] Psychologic: Affect normal, judgement normal, mood normal. [] Current Patient Data Vital Signs Vital Signs Date Time Temp Pulse Resp B/P (MAP) Pulse Ox O2 Delivery O2 Flow Rate FiO2 11/08/20 21:10 98.6 92 20 158/92 (114) 99 Room Air Lab Results Current Medications Medications (Trade) Dose Ordered Sig/Alison Route PRN Reason Start Time Stop Time Status Last Admin Dose Admin Throat Lozenges (Cepacol Sore Throat Lozenge) 1 ron PRN Q2HR PRN PO SORE THROAT 11/08/20 21:45 11/08/20 22:14 Dexamethasone Sodium Phosphate (Decadron) 10 mg 1X ONCE PO 11/08/20 21:45 11/08/20 21:47 DC 11/08/20 22:14 Acetaminophen (Tylenol) 650 mg 1X ONCE PO 11/08/20 21:45 11/08/20 21:49 DC 11/08/20 22:14 Ibuprofen (Motrin) 600 mg 1X ONCE PO 11/08/20 21:45 11/08/20 21:49 DC 11/08/20 22:13 EKG EKG [] Radiology/Procedures Radiology/Procedures [] Heart Score Risk Factors: Risk Factors: DM, Current or recent (<one month) smoker, HTN, HLP, family history of CAD, obesity. Risk Scores: Risk Factors: DM, Current or recent (<one month) smoker, HTN, HLP, family history of CAD, obesity. Course & Med Decision Making Course & Med Decision Making Patient is a 34-year-old female who presents with a chief complaint of sore throat Vital signs not concerning. Physical exam noted above. Patient given dexamethasone, Tylenol and ibuprofen for pain control. Patient has a Centor score of 3 points given a 28 to 35% probability of strep pharyngitis. Negative strep assay. But given patient's physical exam and Centor score started on Augmentin for strep pharyngitis. Advised patient to follow-up with primary care physician as soon as she could to discuss ED visit and set up a post ER follow-up. Advised to come back to the ED with new or concerning symptoms. Patient grateful, verbalized understanding and agreed with plan of discharge. [] Dragon Disclaimer Dragon Disclaimer This electronic medical record was generated, in whole or in part, using a voice recognition dictation system. Departure Departure: Impression: Primary Impression: Strep pharyngitis Disposition: 01 DC HOME SELF CARE/HOMELESS Condition: GOOD Referrals: TASHA DING (PCP) Patient Instructions: Strep Throat Scripts Amoxicillin/Potassium Clav (AUGMENTIN 875-125 TABLET) 1 Each Tablet 1 TAB PO BID for strep throat for 10 Days, #19 TAB 0 Refills Prov: CARMITA VICTORIA MD 11/08/20 CARMITA VICTORIA MD Nov 08, 2020 21:47
[2020-11-08] MEDS: IBUPROFEN 600 MG TABLET. PO ONE (22:13)
[2020-11-08] MEDS: BENZOCAINE/MENTHOL LOZNGE 18'S BOX. PO PRN (22:14)
[2020-11-08] MEDS: DEXAMETHASONE SOD PHOS 10 MG/ML VIAL. PO ONE (22:14)
[2020-11-08] MEDS: ACETAMINOPHEN 325 MG TABLET PO ONE (22:14)
[2020-11-08] MEDS ORDERED: AMOX1TAB61 PO (22:45)
[2020-11-08] MEDS: oxyCODONE/APAP 10/325 1 TAB TABLET PO ONE (22:57)
[2020-11-08] MEDS: AMOXICILLIN/K CLAV 875/125MG TABLET. PO ONE (22:57)
[2020-11-08 22:58] VITALS: BP 139/94
== END 2020-11-08 22:59 | disposition home or self-care (01) ==
LOC: ER 21:09
DX: J02.0 Streptococcal pharyngitis (principal); B95.0 Streptococcus, group A, as the cause of diseases classified elsewhere; F41.9 Anxiety disorder, unspecified; F17.210 Nicotine dependence, cigarettes, uncomplicated
CPT/HCPCS: 87070; 87880; 99284; J1100

== ENCOUNTER 2021-10-01 12:51 | Emergency (ER) | payer OTHER ==
[~2021-10-01] VITALS: Ht 160 cm; Wt 87.7 kg
[~2021-10-01 12:51] MED LIST changes: +AMOX1TAB61 PO
[2021-10-01] MEDS ORDERED: IV NORMAL SALINE 1,000ML 1,000 ML IV ONE (13:45)
[2021-10-01] MEDS ORDERED: ONDANSETRON PF 4 MG/2 ML VIAL. ONE (13:47)
[2021-10-01] MEDS ORDERED: ONDANSETRON PF 4 MG/2 ML VIAL. IVP ONE (14:00)
[2021-10-01] MEDS ORDERED: IOHEXOL 300 MG/ML 75 ML VIAL. IV ONE ×2 (14:00→14:15)
--- NOTE | 2021-10-01 14:00 | PHYS DOC ---
Past History Past Medical History: Anxiety Additional Past Medical Histor: ADD Past Surgical History: Appendectomy, , Hysterectomy Smoking: Cigarettes Alcohol Use: None Drug Use: None General Adult EDM: Chief Complaint: ABDOMINAL PAIN HPI: HPI: 35-year-old female presents with right lower quadrant abdominal pain. The patient describes it as a pulling sensation since [place]. It has been tolerable until the last 2 days where it has developed episodes of sharp stabbing pain in the same area. Patient has a history of 3 different abdominal surgeries for tubal ligation, hysterectomy, oophorectomy. She had scar tissue each time. Patient denies constipation. She has tried laxatives at the direction of her PCP to make sure she was not constipated. She denies fever or chills. She has no history of trauma or falls. Review of Systems: Review of Systems: Constitutional: Denies fever or chills Eyes: Denies change in visual acuity HENT: Denies nasal congestion or sore throat Respiratory: Denies cough or shortness of breath Cardiovascular: Denies chest pain or edema GI: Right lower quadrant abdominal pain, nausea, vomiting. Denies bloody stools or diarrhea : Denies dysuria Musculoskeletal: Denies back pain or joint pain Integument: Denies rash Neurologic: Denies headache, focal weakness or sensory changes Endocrine: Denies polyuria or polydipsia Lymphatic: Denies swollen glands Psychiatric: Denies depression or anxiety Current Medications: Current Meds: Current Medications Medications (Trade) Dose Ordered Sig/Alison Start Time Stop Time Status Last Admin Dose Admin Ondansetron HCl (Zofran) 4 mg 1X ONCE 10/01/21 14:00 10/01/21 14:01 UNV Sodium Chloride 1,000 ml @ 1,000 mls/hr 1X ONCE 10/01/21 13:45 10/01/21 14:44 Allergies: Allergies: Allergies Coded Allergies Type Severity Reaction Last Updated Verified No Known Drug Allergies 12/28/14 No Physical Exam: PE: Constitutional: Well developed, well nourished, no acute distress, non-toxic appearance. [] HENT: Normocephalic, atraumatic, bilateral external ears normal, oropharynx moist, no oral exudates, nose normal. [] Eyes: PERRLA, EOMI, conjunctiva normal, no discharge. [] Neck: Normal range of motion, no tenderness, supple, no stridor. [] Cardiovascular: Heart rate regular rhythm, no murmur [] Lungs & Thorax: Bilateral breath sounds clear to auscultation [] Abdomen: Bowel sounds normal, soft, no tenderness, no masses, no pulsatile masses. [] Skin: Warm, dry, no erythema, no rash. [] Back: No tenderness, no CVA tenderness. [] Extremities: No tenderness, no cyanosis, no clubbing, ROM intact, no edema. [] Neurologic: Alert and oriented X 3, normal motor function, normal sensory function, no focal deficits noted. [] Psychologic: Affect normal, judgement normal, mood normal. [] EKG: EKG: [] Radiology/Procedures: Radiology/Procedures: [] Impressions: CT ABDOMEN+PELVIS W History: RLQ pain Comparison: None. Technique: After administration of intravenous contrast, helical CT of the abdomen and pelvis was performed from the lung bases through the ischial tuberosities. Coronal and sagittal reconstructions were obtained. One or more of the following dose reduction techniques were utilized: Automated exposure control (AEC), Adjustment of mA and/or kV according to patient size, Use of iterative reconstruction technique such as ASiR, CT scan done according to ALARA and image gently/image wisely Abdomen Findings: The visualized lung bases are clear. Hepatic steatosis. The gallbladder, pancreas, spleen, and bilateral adrenal glands are normal. Symmetric renal enhancement. No opaque urinary calculi. There is no hydronephro sis. The visualized loops of small bowel are normal. The visualized loops of large bowel are normal. There is no evidence of bowel obstruction. Appendectomy. There is no free fluid. There is no mesenteric or retroperitoneal adenopathy. The abdominal aorta is normal in caliber. Pelvis Findings: Urinary bladder is normal. Hysterectomy. No pelvic free fluid. There is no pelvi c or inguinal adenopathy. There is no acute bony abnormality. IMPRESSION: 1. No acute findings. No hydronephrosis or opaque urinary calculi. 2. Appendectomy. Hysterectomy. 3. Hepatic steatosis. Electronically signed by: Adenike Cohen MD (10/01/2021 2:46 PM) [id number] DICTATED AND SIGNED BY: ADENIKE COHEN MD DATE: 10/01/21 1442 CC: JORGE L AZUL DO; TASHA DING ~MTH0 0 Heart Score: C/O Chest Pain: N/A Risk Factors: Risk Factors: DM, Current or recent (<one month) smoker, HTN, HLP, family history of CAD, obesity. Risk Scores: Score 0 - 3: 2.5% MACE over next 6 weeks - Discharge Home Score 4 - 6: 20.3% MACE over next 6 weeks - Admit for Clinical Observation Score 7 - 10: 72.7% MACE over next 6 weeks - Early Invasive Strategies Course & Med Decision Making: Course & Med Decision Making Pertinent Labs and Imaging studies reviewed. (See chart for details) The patient's CMP is unremarkable. Her urinalysis is negative for infection. Her CT of the abdomen and pelvis is negative for acute findings. The patient's symptoms could be related to adhesions. Not sure why it has flared up more recently. I have advised that she follow-up with her primary physician and consider general surgery consult if it does not improve soon. I will discharge her with some pain medication. She is stable for discharge at this time. [] Daisy Disclaimer: Daisy Disclaimer: This electronic medical record was generated, in whole or in part, using a voice recognition dictation system. Departure Departure: Impression: Primary Impression: Right lower quadrant abdominal pain Disposition: HOME / SELF CARE / HOMELESS Condition: STABLE Referrals: TASHA DING (PCP) Patient Instructions: Abdominal Pain, [id number], Adhesions, [id number] JORGE L AZUL DO Oct 01, 2021 14:00
[2021-10-01 14:21] LABS: BASO # 0.1 x10^3/uL (0.0-0.2); BASO % 1 % (0-3); EOS # 0.6 x10^3/uL (0.0-0.7); EOS % 5 % (0-3); HEMATOCRIT 38.9 % (36.0-47.0); LYMPH # 2.1 x10^3/uL (1.0-4.8); LYMPH % 16 % (24-48); MEAN CORPUSCULAR HEMOGLOBIN 29 pg (25-35); MEAN CORPUSCULAR HGB CONC 33 g/dL (31-37); MEAN CORPUSCULAR VOLUME 88 fL (79-100); MONO # 0.7 x10^3/uL (0.0-1.1); MONO % 5 % (0-9); NEUT # 9.4 x10^3uL (1.8-7.7); NEUT % 74 % (31-73); PLATELET COUNT 277 x10^3/uL (140-400); RED BLOOD COUNT 4.43 x10^6/uL (3.50-5.40); RED CELL DISTRIBUTION WIDTH 14.2 % (11.5-14.5); WHITE BLOOD COUNT 12.8 x10^3/uL (4.0-11.0)
[2021-10-01 14:26] LABS: BILIRUBIN,URINE NEG (NEG); CLARITY,URINE CLEAR; COLOR,URINE YELLOW; GLUCOSE,URINE NEG (NEG)
[2021-10-01 14:27] LABS: CREATININE 0.7 mg/dL (0.6-1.0); GFR 96.4; POTASSIUM 3.7 mmol/L (3.5-5.1)
[2021-10-01 14:27] LABS: BACTERIA,URINE FEW /HPF (0-FEW); NITRITE,URINE NEG (NEG); SQUAMOUS EPITHELIAL CELL,UR FEW /LPF; UROBILINOGEN,URINE 0.2 mg/dL (0.2 mg/dL); WBC,URINE 0 /HPF (0-4)
[2021-10-01 14:32] LABS: ALBUMIN/GLOBULIN RATIO 0.9 (1.0-1.7); TOTAL BILIRUBIN 0.2 mg/dL (0.2-1.0); TOTAL PROTEIN 8.4 g/dL (6.4-8.2)
--- NOTE | 2021-10-01 14:48 | RAD ---
CT ABDOMEN+PELVIS W History: RLQ pain Comparison: None. Technique: After administration of intravenous contrast, helical CT of the abdomen and pelvis was per formed from the lung bases through the ischial tuberosities. Coronal and sagittal reconstructions wer e obtained. One or more of the following dose reduction techniques were utilized: Automated exposure control (AEC), Adjustment of mA and/or kV according to patient size, Use of iterative reconstruction technique such as ASiR, CT scan done according to ALARA and image gently/image wisely Abdomen Findings: The visualized lung bases are clear. Hepatic steatosis. The gallbladder, pancreas, spleen, and bilateral adrenal glands are normal. Symmetric renal enhancement. No opaque urinary calculi. There is no hydronephrosis. The visualized loops of small bowel are normal. The visualized loops of large bowel are normal. There is no evidence of bowel obstruction. Appendectomy. There is no free fluid. There is no mesenteric or retroperitoneal adenopathy. The abdominal aorta is normal in caliber. Pelvis Findings: Urinary bladder is normal. Hysterectomy. No pelvic free fluid. There is no pelvic or inguinal adenopa thy. There is no acute bony abnormality. IMPRESSION: 1. No acute findings. No hydronephrosis or opaque urinary calculi. 2. Appendectomy. Hysterectomy. 3. Hepatic steatosis. Electronically signed by: Rey Ferrell MD (10/01/2021 2:46 PM) [id number]
[2021-10-01] MEDS ORDERED: MORPHINE SULFATE 4 MG/ML DISP.SYRIN. IV ONE (15:00)
[2021-10-01] MEDS ORDERED: HYDR-2759 PO (16:02)
[2021-10-01 16:07] VITALS: BP 115/78
== END 2021-10-01 16:07 | disposition home or self-care (01) ==
LOC: ER 12:51
DX: R10.31 Right lower quadrant pain (principal); R11.2 Nausea with vomiting, unspecified; F41.9 Anxiety disorder, unspecified; F17.210 Nicotine dependence, cigarettes, uncomplicated; Z90.89 Acquired absence of other organs; Z98.890 Other specified postprocedural states; Z90.710 Acquired absence of both cervix and uterus
CPT/HCPCS: 36415; 74177; 80053; 81001; 85025; 96374; 96375; 99285; J2270; J2405; Q9967

== ENCOUNTER → 2022-01-09 | Outpatient (CLI) | payer OTHER ==
[~2022-01-09] MED LIST changes: +HYDR-2759 PO
[2022-01-09 10:40] LABS: BASO # 0.1 x10^3/uL (0.0-0.2); BASO % 1 % (0-3); EOS # 0.6 x10^3/uL (0.0-0.7); EOS % 6 % (0-3); HEMATOCRIT 37.7 % (36.0-47.0); HEMOGLOBIN 12.6 g/dL (12.0-15.5); LYMPH % 19 % (24-48); MEAN CORPUSCULAR HEMOGLOBIN 30 pg (25-35); MEAN CORPUSCULAR HGB CONC 33 g/dL (31-37); MEAN CORPUSCULAR VOLUME 88 fL (79-100); MONO # 0.7 x10^3/uL (0.0-1.1); MONO % 7 % (0-9); NEUT # 7.3 x10^3uL (1.8-7.7); NEUT % 68 % (31-73); PLATELET COUNT 264 x10^3/uL (140-400); RED BLOOD COUNT 4.27 x10^6/uL (3.50-5.40); WHITE BLOOD COUNT 10.7 x10^3/uL (4.0-11.0)
[2022-01-09 10:52] LABS: ALBUMIN 3.5 g/dL (3.4-5.0); ALBUMIN/GLOBULIN RATIO 0.9 (1.0-1.7); CALCIUM 8.4 mg/dL (8.5-10.1); CREATININE 0.6 mg/dL (0.6-1.0); GFR 114.4; POTASSIUM 3.9 mmol/L (3.5-5.1); TOTAL BILIRUBIN 0.2 mg/dL (0.2-1.0); TOTAL PROTEIN 7.4 g/dL (6.4-8.2)
--- NOTE | 2022-01-09 10:55 | RAD ---
EXAM: Chest, 2 views. HISTORY: New medication use. Pulmonary surveillance. COMPARISON: None. FINDINGS: 2 views of the chest are obtained. There is suspected lingular and right middle lobe atelec tasis or scarring. There is no consolidation, pleural effusion or pneumothorax. The heart is normal i n size. IMPRESSION: No acute pulmonary finding. Electronically signed by: Anum Gordon MD (01/09/2022 10:52 AM) [id number]
== END ==
LOC: RAD 08:43
PROVIDERS: ATTEND Physician Assistant
DX: Z51.81 Encounter for therapeutic drug level monitoring (principal); R21 Rash and other nonspecific skin eruption
CPT/HCPCS: 36415; 71046; 80053; 84702; 85025; 86705; 86709; 86803; 87340